=== PATIENT | male | born 1930 | race Caucasian/White ===

== ENCOUNTER 2018-09-13 18:39 | Inpatient (IN) | payer MEDICARE ==
[~2018-09-13] VITALS: Ht 188 cm; Wt 97.0 kg
--- NOTE | 2018-09-13 18:58 | NUR ---
TRAUMA CODE CANCELLED PER MITRA ZHAO.
--- NOTE | 2018-09-13 19:05 | NUR ---
To XR via christopher.
[2018-09-13 19:21] LABS: BASOPHILS % (AUTO) 0.8 % (0-1); EOSINOPHILS # (AUTO) 0.2 X10'3 (0-0.9); EOSINOPHILS % (AUTO) 3.7 % (0-6); HEMATOCRIT 35.1 % (42.0-52.0); HEMOGLOBIN 11.4 g/dl (14.0-17.9); LYMPHOCYTES # (AUTO) 1.3 X10'3 (1.1-4.8); MEAN CORPUSCULAR HEMOGLOBIN 30.1 PG (27.0-31.0); MEAN CORPUSCULAR HGB CONC 32.4 % (33.0-36.5); MEAN CORPUSCULAR VOLUME 92.7 FL (78-98); MEAN PLATELET VOLUME 7.8 FL (7.4-10.4); MONOCYTES # (AUTO) 0.6 X10'3 (0-0.9); MONOCYTES % (AUTO) 10.9 % (2-12); NEUTROPHILS # (AUTO) 3.8 X10'3 (1.8-7.7); NEUTROPHILS % (AUTO) 62.6 % (42-75); PLATELET COUNT 282 X10'3 (140-440); RED BLOOD COUNT 3.79 X10'6 (4.70-6.10); RED CELL DISTRIBUTION WIDTH 15.3 % (11.5-14.5); WHITE BLOOD COUNT 5.9 X10'3 (4.5-11.0)
[2018-09-13 19:28] LABS: ALANINE AMINOTRANSFERASE 23 U/L (12-78); ALBUMIN 3.3 G/DL (3.4-5.0); ALBUMIN/GLOBULIN RATIO 0.8 (1.1-1.5); ALKALINE PHOSPHATASE 163 IU/L (46-116); ANION GAP 9 (8-16); ASPARTATE AMINO TRANSFERASE 20 U/L (10-37); BILIRUBIN,TOTAL 0.3 MG/DL (0.1-1.0); BLOOD UREA NITROGEN 31 MG/DL (7-18); BUN/CREATININE RATIO 22.6 (5.4-32.0); CALCIUM 8.7 MG/DL (8.5-10.1); CHLORIDE 102 MMOL/L (99-107); CREATININE 1.37 MG/DL (0.60-1.10); GLUCOSE 84 MG/DL (70-104); POTASSIUM 3.7 MMOL/L (3.5-5.1); SODIUM 139 MMOL/L (135-145); TOTAL CARBON DIOXIDE 28.3 MMOL/L (24-32); TOTAL PROTEIN 7.5 G/DL (6.4-8.2); eGFR 49 ML/MIN
[2018-09-13 19:39] LABS: INR 2.1 INR; PARTIAL THROMBOPLASTIN TIME 35 SECONDS (22-32); PROTHROMBIN TIME 20.2 SECONDS (9.0-12.0)
[2018-09-13] MEDS ORDERED: FURO-150 PO (19:57)
[2018-09-13] MEDS ORDERED: SPIR25TA5 PO (19:57)
[2018-09-13] MEDS ORDERED: VITC500T PO (19:57)
[2018-09-13] MEDS ORDERED: CHOL400C8 PO (19:57)
[2018-09-13] MEDS ORDERED: ALPR-623 PO (19:57)
[2018-09-13] MEDS ORDERED: MIRT15TA8 PO (19:57)
[2018-09-13] MEDS ORDERED: LEVO75TA7 PO (19:57)
[2018-09-13] MEDS ORDERED: AMIO200T40 PO (19:57)
[2018-09-13] MEDS ORDERED: COU4T PO (19:57)
[2018-09-13] MEDS ORDERED: ROPI2TAB4 PO (19:57)
[2018-09-13] MEDS ORDERED: METO-539 PO (19:57)
[2018-09-13] MEDS ORDERED: temazepam 15mg capsule PO PRN (21:00)
[2018-09-13] MEDS ORDERED: mag hydrox/Alum hydrox/simeth 30ml oral suspension PO PRN (22:15)
[2018-09-13] MEDS ORDERED: bisacodyl 10mg suppository rectal RC PRN (22:15)
[2018-09-13] MEDS ORDERED: diphenhydrAMINE 50 mg/ml inj IV PRN (22:15)
[2018-09-13] MEDS ORDERED: acetaminophen 650mg rectal suppository RC PRN (22:15)
[2018-09-13] MEDS ORDERED: morphine 4 MG/ML inj SYRINge IV PRN (22:15)
[2018-09-13] MEDS ORDERED: magnesium hydroxide 30ml (MOM) UD suspension PO PRN (22:15)
[2018-09-13] MEDS ORDERED: diphenhydrAMINE 25mg capsule PO PRN (22:15)
[2018-09-13] MEDS ORDERED: acetaminophen 325mg tablet PO PRN ×2 (22:15)
[2018-09-13] MEDS ORDERED: ondansetron/PF 4mg/2ml inj IV PRN (22:15)
[2018-09-13] MEDS ORDERED: HYDROmorphone 1 mg/ml syringe IV PRN (22:15)
[2018-09-13] MEDS ORDERED: metoclopramide 5 mg/ml inj IV PRN (22:15)
[2018-09-13 22:48] LABS: PHOSPHORUS 2.9 MG/DL (2.3-4.5)
[2018-09-13] MEDS ORDERED: phytonadione inj. 3 MG in normal saline 100ml IV soln 99.7 ML IV ONE (23:15)
[2018-09-13 23:30] VITALS: BP 157/74
[2018-09-14] MEDS: normal saline 1000ml 1,000 ML IV SCH ×2 (00:38→21:17)
[2018-09-14] MEDS: pantoprazole 40 MG vial IV SCH ×2 (00:41→07:12)
[2018-09-14] MEDS: HYDROcodone/acetaminophen 10/325mg tab PO PRN (00:44)
--- NOTE | 2018-09-14 01:38 | NUR ---
Pt is up to the floor via gurney arrival at 2330 on 09/13/18, settled in, VSS, sanchez's trx applied, SCD's appliied, Pt is darted, A&Ox4 and states that he did not hit his head, fell while doing therapy at his new home [facility]. pt states that he takes Coumadin for AFIB. Vit K ordered. PT HAS REFUSED CT SCAN AT THIS TIME. DR CABELLO NOTIFIED.
[2018-09-14 02:00] VITALS: BP 112/55
[2018-09-14 06:00] VITALS: BP 118/61
--- NOTE | 2018-09-14 06:41 | NUR ---
REPORT GIVEN TO PAVEL GUERRA.
[2018-09-14] MEDS: docusate sod 100mg capsule PO SCH ×2 (07:12→20:42)
[2018-09-14 07:27] LABS: BASOPHILS % (AUTO) 0.2 % (0-1); EOSINOPHILS # (AUTO) 0.1 X10'3 (0-0.9); EOSINOPHILS % (AUTO) 1.6 % (0-6); HEMATOCRIT 35.7 % (42.0-52.0); HEMOGLOBIN 11.6 g/dl (14.0-17.9); LYMPHOCYTES % (AUTO) 13.6 % (21-51); MEAN CORPUSCULAR HEMOGLOBIN 30.2 PG (27.0-31.0); MEAN CORPUSCULAR HGB CONC 32.7 % (33.0-36.5); MEAN CORPUSCULAR VOLUME 92.3 FL (78-98); MEAN PLATELET VOLUME 7.7 FL (7.4-10.4); MONOCYTES # (AUTO) 0.7 X10'3 (0-0.9); MONOCYTES % (AUTO) 9.1 % (2-12); NEUTROPHILS # (AUTO) 5.7 X10'3 (1.8-7.7); NEUTROPHILS % (AUTO) 75.5 % (42-75); PLATELET COUNT 285 X10'3 (140-440); RED BLOOD COUNT 3.86 X10'6 (4.70-6.10); RED CELL DISTRIBUTION WIDTH 15.7 % (11.5-14.5); WHITE BLOOD COUNT 7.5 X10'3 (4.5-11.0)
[2018-09-14 07:37] LABS: ALANINE AMINOTRANSFERASE 21 U/L (12-78); ALBUMIN/GLOBULIN RATIO 0.8 (1.1-1.5); ALKALINE PHOSPHATASE 127 IU/L (46-116); ANION GAP 7 (8-16); ASPARTATE AMINO TRANSFERASE 18 U/L (10-37); BILIRUBIN,TOTAL 0.8 MG/DL (0.1-1.0); BLOOD UREA NITROGEN 28 MG/DL (7-18); BUN/CREATININE RATIO 22.6 (5.4-32.0); CALCIUM 8.5 MG/DL (8.5-10.1); CHLORIDE 103 MMOL/L (99-107); CREATININE 1.24 MG/DL (0.60-1.10); GLUCOSE 99 MG/DL (70-104); INR 1.8 INR; PARTIAL THROMBOPLASTIN TIME 34 SECONDS (22-32); POTASSIUM 3.8 MMOL/L (3.5-5.1); PROTHROMBIN TIME 17.4 SECONDS (9.0-12.0); SODIUM 139 MMOL/L (135-145); TOTAL CARBON DIOXIDE 28.6 MMOL/L (24-32); TOTAL PROTEIN 6.8 G/DL (6.4-8.2); eGFR 55 ML/MIN
[2018-09-14] MEDS ORDERED: phytonadione 10 MG/1 ML amp PO ONE ×2 (08:25→21:00)
[2018-09-14 10:00] VITALS: BP 124/56
[2018-09-14] MEDS ORDERED: pneumococcal 23-VAL P-sac vacc 25 mcg/0.5ml vial IMVAC ONE (10:00)
[2018-09-14] MEDS ORDERED: ALPRAZolam 0.25mg tablet PO PRN (15:00)
[2018-09-14 18:00] VITALS: BP 111/54
--- NOTE | 2018-09-14 18:25 | NUR ---
Problems reprioritized. Patient report given, questions answered & plan of care reviewed with Krystin ZHAO.
[2018-09-14] MEDS: mirtazapine 15mg tablet PO SCH (20:42)
[2018-09-14] MEDS: ROPINIRole 1mg tablet PO SCH (20:42)
[2018-09-14 22:00] VITALS: BP 108/64
[2018-09-14 22:16] LABS: CLARITY,URINE CLEAR (Clear); COLOR,URINE YELLOW (Yellow); GLUCOSE, URINE NEGATIVE (Neg); KETONES,URINE NEGATIVE (Neg); LEUKOCYTE ESTERASE ,URINE NEGATIVE (Neg); NITRITES, URINE NEGATIVE (Neg); OCCULT BLOOD,URINE LARGE (Neg); PH,URINE 6.5 (4.8-8.0); PROTEIN,URINE NEGATIVE (Neg)
[2018-09-14 22:17] LABS: UA COLLECTION TYPE FOLEY CATH
[2018-09-14 22:22] LABS: BACTERIA,URINE FEW /HPF (Neg); RBC,URINE 20-50 /HPF (0-2); SQUAMOUS EPITHELIAL CELL,UR FEW /LPF (FEW); WBC,URINE 0-4 /HPF (0-4)
[2018-09-15] VITALS (16 sets, daily range): BP systolic 92–132; BP diastolic 45–70
--- NOTE | 2018-09-15 06:30 | NUR ---
Patient in room ORTHO 4013. I have received report from PAVEL Mclcelland and had the opportunity to ask questions and assume patient care.
[2018-09-15 06:32] LABS: INR 1.2 INR; PROTHROMBIN TIME 12.3 SECONDS (9.0-12.0)
--- NOTE | 2018-09-15 06:32 | NUR ---
REPORT GIVEN TO PAVEL ARAYA.
[2018-09-15 06:34] LABS: ALANINE AMINOTRANSFERASE 21 U/L (12-78); ALBUMIN 2.9 G/DL (3.4-5.0); ALBUMIN/GLOBULIN RATIO 0.7 (1.1-1.5); ALKALINE PHOSPHATASE 121 IU/L (46-116); ANION GAP 8 (8-16); ASPARTATE AMINO TRANSFERASE 20 U/L (10-37); BILIRUBIN,TOTAL 0.8 MG/DL (0.1-1.0); BLOOD UREA NITROGEN 22 MG/DL (7-18); BUN/CREATININE RATIO 16.5 (5.4-32.0); CALCIUM 8.4 MG/DL (8.5-10.1); CHLORIDE 104 MMOL/L (99-107); CREATININE 1.33 MG/DL (0.60-1.10); GLUCOSE 115 MG/DL (70-104); POTASSIUM 3.9 MMOL/L (3.5-5.1); SODIUM 137 MMOL/L (135-145); TOTAL CARBON DIOXIDE 25.4 MMOL/L (24-32); TOTAL PROTEIN 6.9 G/DL (6.4-8.2); eGFR 51 ML/MIN
[2018-09-15 06:50] LABS: BASOPHILS % (AUTO) 0.2 % (0-1); EOSINOPHILS # (AUTO) 0.1 X10'3 (0-0.9); EOSINOPHILS % (AUTO) 1.5 % (0-6); HEMATOCRIT 36.8 % (42.0-52.0); HEMOGLOBIN 12.2 g/dl (14.0-17.9); LYMPHOCYTES # (AUTO) 0.8 X10'3 (1.1-4.8); LYMPHOCYTES % (AUTO) 9.3 % (21-51); MEAN CORPUSCULAR HEMOGLOBIN 30.7 PG (27.0-31.0); MEAN CORPUSCULAR HGB CONC 33.2 % (33.0-36.5); MEAN CORPUSCULAR VOLUME 92.7 FL (78-98); MEAN PLATELET VOLUME 8.1 FL (7.4-10.4); MONOCYTES # (AUTO) 0.8 X10'3 (0-0.9); MONOCYTES % (AUTO) 9.6 % (2-12); NEUTROPHILS # (AUTO) 6.8 X10'3 (1.8-7.7); NEUTROPHILS % (AUTO) 79.4 % (42-75); PLATELET COUNT 260 X10'3 (140-440); RED BLOOD COUNT 3.97 X10'6 (4.70-6.10); RED CELL DISTRIBUTION WIDTH 15.4 % (11.5-14.5); WHITE BLOOD COUNT 8.5 X10'3 (4.5-11.0)
[2018-09-15] MEDS: pantoprazole 40mg Tablet.DR PO SCH (07:25)
[2018-09-15] MEDS: amiodarone 200mg tablet PO SCH (07:26)
[2018-09-15] MEDS: levoTHYROXINE 75mcg tablet PO SCH (07:28)
[2018-09-15] MEDS: ROPINIRole 1mg tablet PO SCH ×3 (07:28→23:50)
[2018-09-15] MEDS: ascorbic acid 500mg tablet PO SCH (07:29)
[2018-09-15] MEDS: metoprolol succinate 25mg (24-HOUR) SR. Tablet PO SCH (07:29)
[2018-09-15] MEDS: vitamin D (cholecalciferol) 1,000 unit tablet PO SCH (07:30)
[2018-09-15] MEDS ORDERED: clindamycin 600mg/D5W 50ml 50 ML IV ONE (07:30)
[2018-09-15] MEDS: docusate sod 100mg capsule PO SCH ×2 (08:00→20:02)
[2018-09-15] MEDS ORDERED: furosemide 20MG tablet PO SCH (08:00)
[2018-09-15] MEDS: spironolactone 25 MG tablet PO SCH (08:00)
[2018-09-15] MEDS ORDERED: propofol inj 20 ML IV ONE (08:05)
[2018-09-15] MEDS ORDERED: fentaNYL/PF 50MCG/1 ML 2ML syringe ONE (08:05)
[2018-09-15] MEDS ORDERED: BUPIVAcaine/dex-water/PF 7.5 mg/ml 2ml ampul ONE (08:09)
[2018-09-15] MEDS ORDERED: morphine 4 MG/ML inj SYRINge IV PRN ×2 (08:45)
[2018-09-15] MEDS ORDERED: meperidine/PF 25mg/ml syringe IV PRN ×3 (08:45)
[2018-09-15] MEDS ORDERED: ondansetron/PF 4mg/2ml inj IV PRN ×2 (08:45→09:05)
[2018-09-15] MEDS ORDERED: proCHLORperazine 10 MG/2 ml inj IV PRN (08:45)
[2018-09-15] MEDS ORDERED: ringers solution, lacted 1,000 ML IV SCH (08:45)
[2018-09-15] MEDS ORDERED: diphenhydrAMINE 25mg capsule PO PRN ×2 (09:05)
[2018-09-15] MEDS ORDERED: acetaminophen 325mg tablet PO PRN (09:05)
[2018-09-15] MEDS ORDERED: magnesium hydroxide 30ml (MOM) UD suspension PO PRN (09:05)
[2018-09-15] MEDS ORDERED: bisacodyl 10mg suppository rectal RC PRN (09:05)
--- NOTE | 2018-09-15 09:07 | NUR ---
Received from OR via , accompanied by Anesthesiologist DR LEZAMA and report given by Anesthesiolgist. AWAKENS TO VOICE. VITALS STABLE. DRESSINGS DI. GREG PAIN. SENSATION AT MID CHEST. DUNHAM WIR TH CLEAR URINE.
--- NOTE | 2018-09-15 09:33 | NUR ---
Patient in room ORTHO 4013. I have received report from Eliazar in recovery, and had the opportunity to ask questions and assume patient care. Pt arrived on floor approximately 09:45. Pt was sedated but easily awoken. Pt says "I feel good".
--- NOTE | 2018-09-15 09:47 | NUR ---
Report called to receiving nurse. Transferred via BED Belongings . Special Issues communicated to receiving nurse. AWAKE AND ORIENTED. VITALS STABLE. DRESSING DI. GREG PAIN. TO ORTHO RM 4014M AT THIS TIME.
[2018-09-15] MEDS: clindamycin 600mg/D5W 50ml 50 ML IV SCH ×2 (15:12→20:01)
[2018-09-15] MEDS: normal saline 1000ml 1,000 ML IV SCH (15:13)
--- NOTE | 2018-09-15 18:30 | NUR ---
Problems reprioritized. Patient report given, questions answered & plan of care reviewed with PAVEL Mcclelland.
[2018-09-15] MEDS: HYDROcodone/acetaminophen 10/325mg tab PO PRN (20:02)
[2018-09-15] MEDS: lactobacillus rhamnosus 10,000 MMU CELLS/CAPSULE PO SCH (20:02)
[2018-09-15] MEDS: mirtazapine 15mg tablet PO SCH (23:49)
[2018-09-15] MEDS: sennosides 8.6mg tablet PO SCH (23:50)
[2018-09-16 02:00] VITALS: BP 119/65
[2018-09-16] MEDS: HYDROcodone/acetaminophen 10/325mg tab PO PRN ×2 (05:25→09:12)
[2018-09-16 06:00] VITALS: BP 126/60
[2018-09-16 06:07] LABS: BASOPHILS % (AUTO) 0.2 % (0-1); EOSINOPHILS # (AUTO) 0.2 X10'3 (0-0.9); EOSINOPHILS % (AUTO) 2.7 % (0-6); HEMATOCRIT 33.1 % (42.0-52.0); LYMPHOCYTES # (AUTO) 0.9 X10'3 (1.1-4.8); LYMPHOCYTES % (AUTO) 10.8 % (21-51); MEAN CORPUSCULAR HGB CONC 33.3 % (33.0-36.5); MEAN CORPUSCULAR VOLUME 93.1 FL (78-98); MEAN PLATELET VOLUME 7.9 FL (7.4-10.4); MONOCYTES % (AUTO) 12.4 % (2-12); NEUTROPHILS % (AUTO) 73.9 % (42-75); PLATELET COUNT 233 X10'3 (140-440); RED BLOOD COUNT 3.56 X10'6 (4.70-6.10); RED CELL DISTRIBUTION WIDTH 15.1 % (11.5-14.5); WHITE BLOOD COUNT 8.1 X10'3 (4.5-11.0)
[2018-09-16 06:16] LABS: ALANINE AMINOTRANSFERASE 20 U/L (12-78); ALBUMIN 2.6 G/DL (3.4-5.0); ALBUMIN/GLOBULIN RATIO 0.7 (1.1-1.5); ALKALINE PHOSPHATASE 103 IU/L (46-116); ANION GAP 9 (8-16); ASPARTATE AMINO TRANSFERASE 22 U/L (10-37); BILIRUBIN,TOTAL 0.8 MG/DL (0.1-1.0); BLOOD UREA NITROGEN 25 MG/DL (7-18); BUN/CREATININE RATIO 19.7 (5.4-32.0); CALCIUM 8.1 MG/DL (8.5-10.1); CHLORIDE 101 MMOL/L (99-107); CREATININE 1.27 MG/DL (0.60-1.10); GLUCOSE 107 MG/DL (70-104); INR 1.2 INR; POTASSIUM 3.9 MMOL/L (3.5-5.1); PROTHROMBIN TIME 11.8 SECONDS (9.0-12.0); SODIUM 135 MMOL/L (135-145); TOTAL CARBON DIOXIDE 24.7 MMOL/L (24-32); TOTAL PROTEIN 6.4 G/DL (6.4-8.2); eGFR 54 ML/MIN
--- NOTE | 2018-09-16 06:25 | NUR ---
Patient in room ORTHO 4013. I have received report from PAVEL Mcclelland and had the opportunity to ask questions and assume patient care.
--- NOTE | 2018-09-16 06:33 | NUR ---
REPORT GIVEN TO PAVEL ARAYA.
[2018-09-16] MEDS: ROPINIRole 1mg tablet PO SCH ×3 (08:25→20:30)
[2018-09-16] MEDS: lactobacillus rhamnosus 10,000 MMU CELLS/CAPSULE PO SCH ×2 (08:25→20:31)
[2018-09-16] MEDS: spironolactone 25 MG tablet PO SCH (08:25)
[2018-09-16] MEDS: pantoprazole 40mg Tablet.DR PO SCH (08:25)
[2018-09-16] MEDS: vitamin D (cholecalciferol) 1,000 unit tablet PO SCH (08:26)
[2018-09-16] MEDS: levoTHYROXINE 75mcg tablet PO SCH (08:26)
[2018-09-16] MEDS: ascorbic acid 500mg tablet PO SCH (08:26)
[2018-09-16] MEDS: amiodarone 200mg tablet PO SCH (08:27)
[2018-09-16] MEDS: enoxaparin 40mg/0.4ml syringe SQ SCH (08:27)
[2018-09-16] MEDS: metoprolol succinate 25mg (24-HOUR) SR. Tablet PO SCH (08:27)
[2018-09-16 10:00] VITALS: BP 106/52
[2018-09-16] MEDS: docusate sod 100mg capsule PO SCH ×2 (10:15→20:30)
[2018-09-16 14:00] VITALS: BP 124/60
--- NOTE | 2018-09-16 18:24 | NUR ---
Problems reprioritized. Patient report given, questions answered & plan of care reviewed with Adelaida Dempsey RN.
[2018-09-16 20:00] VITALS: BP 100/51
[2018-09-16] MEDS: mirtazapine 15mg tablet PO SCH (20:30)
[2018-09-16] MEDS: sennosides 8.6mg tablet PO SCH (20:31)
--- NOTE | 2018-09-16 22:30 | NUR ---
Patient agreeable to Flu and PNE vaccine. When entering the room patient was falling asleep. Patient requesting for his vaccination in the morning. and YES he would like his vaccine.
[2018-09-16 23:00] VITALS: BP 105/50
[2018-09-17] MEDS: HYDROcodone/acetaminophen 10/325mg tab PO PRN ×2 (05:36→15:46)
--- NOTE | 2018-09-17 06:07 | NUR ---
F/C removed this morning @9108. Per SCIP Post-op day #2. Patient educated about using urinal. Patient concern of having accidents so educated patient that he does have dry flows underneath him incase he has any accident. Also brief left on bedside table so patient does not have to stress about getting up with PT and having an accident.
[2018-09-17 06:20] VITALS: BP 118/67
--- NOTE | 2018-09-17 06:20 | NUR ---
Patient in room ORTHO 4013. I have received report from Adelaida Desouza RN and had the opportunity to ask questions and assume patient care.
[2018-09-17 06:58] LABS: BASOPHILS % (AUTO) 0.5 % (0-1); EOSINOPHILS # (AUTO) 0.2 X10'3 (0-0.9); EOSINOPHILS % (AUTO) 3.2 % (0-6); HEMATOCRIT 31.4 % (42.0-52.0); HEMOGLOBIN 10.3 g/dl (14.0-17.9); LYMPHOCYTES # (AUTO) 0.8 X10'3 (1.1-4.8); LYMPHOCYTES % (AUTO) 10.3 % (21-51); MEAN CORPUSCULAR HEMOGLOBIN 30.8 PG (27.0-31.0); MEAN CORPUSCULAR HGB CONC 32.9 % (33.0-36.5); MEAN CORPUSCULAR VOLUME 93.6 FL (78-98); MONOCYTES # (AUTO) 0.7 X10'3 (0-0.9); MONOCYTES % (AUTO) 8.9 % (2-12); NEUTROPHILS % (AUTO) 77.1 % (42-75); PLATELET COUNT 234 X10'3 (140-440); RED BLOOD COUNT 3.35 X10'6 (4.70-6.10); RED CELL DISTRIBUTION WIDTH 15.4 % (11.5-14.5); WHITE BLOOD COUNT 7.7 X10'3 (4.5-11.0)
[2018-09-17 07:14] LABS: INR 1.1 INR; PROTHROMBIN TIME 11.3 SECONDS (9.0-12.0)
[2018-09-17 07:26] LABS: ALANINE AMINOTRANSFERASE 20 U/L (12-78); ALBUMIN 2.3 G/DL (3.4-5.0); ALBUMIN/GLOBULIN RATIO 0.6 (1.1-1.5); ALKALINE PHOSPHATASE 91 IU/L (46-116); ANION GAP 10 (8-16); ASPARTATE AMINO TRANSFERASE 31 U/L (10-37); BILIRUBIN,TOTAL 0.6 MG/DL (0.1-1.0); BLOOD UREA NITROGEN 30 MG/DL (7-18); BUN/CREATININE RATIO 23.3 (5.4-32.0); CALCIUM 7.9 MG/DL (8.5-10.1); CHLORIDE 102 MMOL/L (99-107); CREATININE 1.29 MG/DL (0.60-1.10); GLUCOSE 127 MG/DL (70-104); POTASSIUM 3.8 MMOL/L (3.5-5.1); SODIUM 135 MMOL/L (135-145); TOTAL CARBON DIOXIDE 22.9 MMOL/L (24-32); TOTAL PROTEIN 6.1 G/DL (6.4-8.2); eGFR 53 ML/MIN
[2018-09-17 08:00] VITALS: BP 115/66
[2018-09-17] MEDS: pantoprazole 40mg Tablet.DR PO SCH (08:02)
[2018-09-17] MEDS: amiodarone 200mg tablet PO SCH (08:03)
[2018-09-17] MEDS: lactobacillus rhamnosus 10,000 MMU CELLS/CAPSULE PO SCH (08:03)
[2018-09-17] MEDS: spironolactone 25 MG tablet PO SCH (08:03)
[2018-09-17] MEDS: docusate sod 100mg capsule PO SCH (08:03)
[2018-09-17] MEDS: levoTHYROXINE 75mcg tablet PO SCH (08:04)
[2018-09-17] MEDS: vitamin D (cholecalciferol) 1,000 unit tablet PO SCH (08:04)
[2018-09-17] MEDS: metoprolol succinate 25mg (24-HOUR) SR. Tablet PO SCH (08:04)
[2018-09-17] MEDS: ascorbic acid 500mg tablet PO SCH (08:04)
[2018-09-17] MEDS: ROPINIRole 1mg tablet PO SCH ×2 (08:04→14:09)
[2018-09-17] MEDS: enoxaparin 40mg/0.4ml syringe SQ SCH (08:05)
[2018-09-17 10:00] VITALS: BP 112/67
--- NOTE | 2018-09-17 16:15 | NUR ---
Problems reprioritized. Patient report given, questions answered & plan of care reviewed with PAVEL Aj at [facility].
[2018-09-17] MEDS ORDERED: warfarin 4mg tablet PO SCH (21:00)
== END 2018-09-17 16:00 | DRG 481 ==
LOC: ER 18:40 → ED HOLD 22:14 → ORTHO 4S 23:10
PROVIDERS: ADMIT Family Medicine; ATTEND Internal Medicine
PROC: 0QS706Z Reposition Left Upper Femur with Intramedullary Internal Fixation Device, Open Approach (ICD-10-PCS; principal; 2018-09-15 08:02)
DX: S72.142A Displaced intertrochanteric fracture of left femur, initial encounter for closed fracture (principal); N17.9 Acute kidney failure, unspecified; I13.0 Hypertensive heart and chronic kidney disease with heart failure and stage 1 through stage 4 chronic kidney disease, or unspecified chronic kidney disease; I50.42 Chronic combined systolic (congestive) and diastolic (congestive) heart failure; D62 Acute posthemorrhagic anemia; N18.3 Chronic kidney disease, stage 3 (moderate); W01.0XXA Fall on same level from slipping, tripping and stumbling without subsequent striking against object, initial encounter; E03.9 Hypothyroidism, unspecified; F02.80 Dementia in other diseases classified elsewhere, unspecified severity, without behavioral disturbance, psychotic disturbance, mood disturbance, and anxiety; G20 Parkinson's disease; I48.2 Chronic atrial fibrillation; Z88.0 Allergy status to penicillin; Z88.8 Allergy status to other drugs, medicaments and biological substances; Z79.899 Other long term (current) drug therapy; Z79.82 Long term (current) use of aspirin; Z79.01 Long term (current) use of anticoagulants; Z85.828 Personal history of other malignant neoplasm of skin; Y93.89 Activity, other specified; Y92.098 Other place in other non-institutional residence as the place of occurrence of the external cause; Y99.8 Other external cause status
CPT/HCPCS: 36415; 71045; 73502; 76000; 80053; 81001; 83735; 83880; 84100; 84443; 84484; 85025; 85610; 85730; 86885; 86900; 86901; 87070; 93005; 93306; 97110; 97162; 97530; 99285; A4615; A6222; A6257; A6449; A7000; C9113; G0378; J1650; J2704; J3010; J3430; J3490; J7030; J7120

== ENCOUNTER 2019-07-26 14:22 | Observation (INO) | payer MEDICARE ==
[~2019-07-26] VITALS: Ht 195.6 cm; Wt 102.3 kg
[~2019-07-26 14:22] MED LIST: ALPR-623 PO; AMIO200T61 PO; CHOL400C8 PO; COU4T PO; FURO-150 PO; LEVO75TA7 PO; METO-539 PO; MIRT15TA8 PO; ROPI2TAB4 PO; SPIR25TA5 PO; VITC500T PO; oxybutynin 5mg tablet PO SCH
[2019-07-26 15:12] LABS: BASOPHILS % (AUTO) 0.6 % (0-1); EOSINOPHILS # (AUTO) 0.2 X10'3 (0-0.9); EOSINOPHILS % (AUTO) 2.8 % (0-6); HEMATOCRIT 39.4 % (42.0-52.0); HEMOGLOBIN 13.2 g/dl (14.0-17.9); LYMPHOCYTES % (AUTO) 14.9 % (21-51); MEAN CORPUSCULAR HGB CONC 33.5 g/dL (33.0-36.5); MEAN CORPUSCULAR VOLUME 98.5 FL (78-98); MEAN PLATELET VOLUME 7.8 FL (7.4-10.4); MONOCYTES # (AUTO) 0.6 X10'3 (0-0.9); MONOCYTES % (AUTO) 9.3 % (2-12); NEUTROPHILS # (AUTO) 4.9 X10'3 (1.8-7.7); NEUTROPHILS % (AUTO) 72.4 % (42-75); PLATELET COUNT 303 X10'3 (140-440); RED CELL DISTRIBUTION WIDTH 14.9 % (11.5-14.5); WHITE BLOOD COUNT 6.7 X10'3 (4.5-11.0)
[2019-07-26 15:29] LABS: ALANINE AMINOTRANSFERASE 25 U/L (12-78); ALBUMIN 3.3 G/DL (3.4-5.0); ALBUMIN/GLOBULIN RATIO 0.8 (1.1-1.5); ALKALINE PHOSPHATASE 214 IU/L (46-116); ANION GAP 8 (8-16); ASPARTATE AMINO TRANSFERASE 27 U/L (10-37); BILIRUBIN,TOTAL 0.3 MG/DL (0.1-1.0); BLOOD UREA NITROGEN 27 MG/DL (7-18); BUN/CREATININE RATIO 20.1 (5.4-32.0); CALCIUM 8.8 MG/DL (8.5-10.1); CHLORIDE 106 MMOL/L (99-107); CREATININE 1.34 MG/DL (0.60-1.10); GLUCOSE 92 MG/DL (70-104); POTASSIUM 3.8 MMOL/L (3.5-5.1); SODIUM 141 MMOL/L (135-145); TOTAL CARBON DIOXIDE 27.3 MMOL/L (24-32); TOTAL PROTEIN 7.2 G/DL (6.4-8.2); eGFR 50 ML/MIN
--- NOTE | 2019-07-26 17:09 | NUR ---
came in for chest pain when breathing reports pain is all gone at this time
[2019-07-26 17:34] LABS: D-DIMER 0.86 MG/L FEU (0-0.50)
[2019-07-26] MEDS ORDERED: iohexol 350MG/ML 100ml bottle IV ONE (18:41)
[2019-07-26] MEDS ORDERED: POLY17PO10 PO (20:21)
[2019-07-26] MEDS ORDERED: OXYB5TAB16 PO (20:21)
[2019-07-26] MEDS ORDERED: ondansetron/PF 4mg/2ml inj IV PRN (20:50)
[2019-07-26] MEDS ORDERED: acetaminophen 325mg tablet PO PRN (20:50)
[2019-07-26] MEDS ORDERED: magnesium hydroxide 30ml (MOM) UD suspension PO PRN (20:50)
[2019-07-26] MEDS ORDERED: mag hydrox/Alum hydrox/simeth 30ml oral suspension PO PRN (20:50)
[2019-07-26] MEDS ORDERED: polyethylene glycol 3350 17gm powd pack PO SCH (20:55)
[2019-07-26] MEDS ORDERED: ALPRAZolam 0.25mg tablet PO PRN (20:55)
[2019-07-26] MEDS ORDERED: mirtazapine 15mg tablet PO SCH (21:00)
[2019-07-26] MEDS ORDERED: HYDROcodone/acetaminophen 5mg/325mg tablet PO PRN (21:00)
[2019-07-27] VITALS: BP 141/72
--- NOTE | 2019-07-27 00:15 | NUR ---
STILL WAITING FOR PHARMACY TO VERIFY 2100 MEDS.
[2019-07-27 05:47] LABS: BASOPHILS % (AUTO) 0.7 % (0-1); EOSINOPHILS # (AUTO) 0.2 X10'3 (0-0.9); EOSINOPHILS % (AUTO) 3.4 % (0-6); HEMATOCRIT 35.5 % (42.0-52.0); HEMOGLOBIN 12.1 g/dl (14.0-17.9); LYMPHOCYTES # (AUTO) 1.1 X10'3 (1.1-4.8); LYMPHOCYTES % (AUTO) 21.2 % (21-51); MEAN CORPUSCULAR HEMOGLOBIN 33.5 PG (27.0-31.0); MEAN CORPUSCULAR VOLUME 98.4 FL (78-98); MEAN PLATELET VOLUME 7.6 FL (7.4-10.4); MONOCYTES # (AUTO) 0.6 X10'3 (0-0.9); MONOCYTES % (AUTO) 10.8 % (2-12); NEUTROPHILS # (AUTO) 3.3 X10'3 (1.8-7.7); NEUTROPHILS % (AUTO) 63.9 % (42-75); PLATELET COUNT 256 X10'3 (140-440); RED BLOOD COUNT 3.61 X10'6 (4.70-6.10); RED CELL DISTRIBUTION WIDTH 14.6 % (11.5-14.5); WHITE BLOOD COUNT 5.2 X10'3 (4.5-11.0)
[2019-07-27 06:09] LABS: ALANINE AMINOTRANSFERASE 18 U/L (12-78); ALBUMIN 2.6 G/DL (3.4-5.0); ALBUMIN/GLOBULIN RATIO 0.7 (1.1-1.5); ALKALINE PHOSPHATASE 173 IU/L (46-116); ANION GAP 9 (8-16); ASPARTATE AMINO TRANSFERASE 21 U/L (10-37); BILIRUBIN,TOTAL 0.4 MG/DL (0.1-1.0); BLOOD UREA NITROGEN 22 MG/DL (7-18); BUN/CREATININE RATIO 18.3 (5.4-32.0); CALCIUM 8.1 MG/DL (8.5-10.1); CHLORIDE 107 MMOL/L (99-107); GLUCOSE 87 MG/DL (70-104); POTASSIUM 3.6 MMOL/L (3.5-5.1); SODIUM 140 MMOL/L (135-145); TOTAL CARBON DIOXIDE 23.6 MMOL/L (24-32); TOTAL PROTEIN 6.2 G/DL (6.4-8.2); eGFR 57 ML/MIN
--- NOTE | 2019-07-27 06:15 | NUR ---
Problems reprioritized. Patient report given, questions answered & plan of care reviewed with PAVEL AVENDANO.
[2019-07-27 06:40] VITALS: BP 97/46
[2019-07-27] MEDS ORDERED: furosemide 20MG tablet PO SCH (08:00)
[2019-07-27] MEDS ORDERED: vitamin D (cholecalciferol) 1,000 unit tablet PO SCH (08:00)
[2019-07-27] MEDS ORDERED: warfarin 4mg tablet PO SCH (08:00)
[2019-07-27] MEDS ORDERED: levoTHYROXINE 75mcg tablet PO SCH (08:00)
[2019-07-27] MEDS ORDERED: ROPINIRole 1mg tablet PO SCH (08:00)
[2019-07-27] MEDS ORDERED: spironolactone 25 MG tablet PO SCH (08:00)
[2019-07-27] MEDS ORDERED: amiodarone 200mg tablet PO SCH (08:00)
[2019-07-27] MEDS ORDERED: metoprolol succinate 25mg (24-HOUR) SR. Tablet PO SCH (08:00)
[2019-07-27] MEDS ORDERED: pneumococcal 23-VAL P-sac vacc 25 mcg/0.5ml vial IMVAC ONE (10:00)
== END 2019-07-27 10:45 | disposition home health service (06) ==
LOC: ER 14:22 → ED HOLD 21:30 → EDBEDREQ 22:42 → ORTHO 4S 22:57
PROVIDERS: ADMIT Internal Medicine; ATTEND Family Medicine
DX: S22.42XA Multiple fractures of ribs, left side, initial encounter for closed fracture (principal); I48.91 Unspecified atrial fibrillation; I50.22 Chronic systolic (congestive) heart failure; F02.80 Dementia in other diseases classified elsewhere, unspecified severity, without behavioral disturbance, psychotic disturbance, mood disturbance, and anxiety; G20 Parkinson's disease; E03.9 Hypothyroidism, unspecified; F41.9 Anxiety disorder, unspecified; N18.9 Chronic kidney disease, unspecified; Z23 Encounter for immunization; Z99.3 Dependence on wheelchair; Z88.8 Allergy status to other drugs, medicaments and biological substances; Z79.01 Long term (current) use of anticoagulants; Z79.899 Other long term (current) drug therapy; X58.XXXA Exposure to other specified factors, initial encounter; Y93.89 Activity, other specified; Y92.89 Other specified places as the place of occurrence of the external cause
CPT/HCPCS: 36415; 71045; 71275; 80053; 83880; 84484; 85025; 85379; 85610; 87081; 90732; 93005; 99284; G0009; G0378; Q9967